=== PATIENT | female | born 1970 | race Asian ===

== ENCOUNTER 2023-02-27 10:40 | Emergency (ER) | payer OTHER ==
[~2023-02-27] VITALS: Ht 149.9 cm; Wt 51.7 kg
[2023-02-27] MEDS ORDERED: METOCLOPRAMIDE HCL 10 MG/2 ML VIAL IV ONE (11:30)
[2023-02-27] MEDS ORDERED: IV NS 0.9% 1,000 ML BAG IV ONE (11:30)
[2023-02-27] MEDS ORDERED: diphenhydrAMINE HCL 50 MG/ML VIAL IV ONE (11:30)
[2023-02-27] MEDS ORDERED: KETOROLAC TROMETHAMINE INJ 30 MG/ML VIAL IV ONE (11:30)
[2023-02-27] MEDS ORDERED: KETOROLAC TROMETHAMINE INJ 30 MG/ML VIAL ONE (11:44)
[2023-02-27] MEDS ORDERED: diphenhydrAMINE HCL 50 MG/ML VIAL ONE (11:44)
[2023-02-27] MEDS ORDERED: METOCLOPRAMIDE HCL 10 MG/2 ML VIAL ONE (11:44)
[2023-02-27] MEDS ORDERED: AMLO2.5T4 PO (11:51)
[2023-02-27] MEDS ORDERED: KETO10TA2 PO (11:51)
[2023-02-27] MEDS ORDERED: METO-295 PO (11:51)
[2023-02-27 12:05] VITALS: BP 154/89; TEMP 98; O2SAT 100
== END 2023-02-27 12:05 | disposition home or self-care (01) ==
LOC: ER 10:40
DX: I10 Essential (primary) hypertension (principal); R51.9 Headache, unspecified; Z79.899 Other long term (current) drug therapy
CPT/HCPCS: 99283; J7030; J1200; J1885; J2765

== ENCOUNTER 2024-03-15 17:10 | Emergency (ER) | payer OTHER ==
[~2024-03-15] VITALS: Ht 149.9 cm; Wt 53.5 kg
[~2024-03-15 17:10] MED LIST: AMLO2.5T4 PO; KETO10TA2 PO; METO-295 PO
[2024-03-15 17:41] VITALS: BP 140/74; TEMP 97.9
[2024-03-15 18:31] VITALS: O2SAT 98
== END 2024-03-15 18:32 | disposition home or self-care (01) ==
LOC: ER 17:53
DX: H11.31 Conjunctival hemorrhage, right eye (principal); R09.89 Other specified symptoms and signs involving the circulatory and respiratory systems; Z86.79 Personal history of other diseases of the circulatory system